=== PATIENT | male | born 1975 ===

== ENCOUNTER 2017-01-12 10:01 | Emergency (ER) | payer BC ==
--- NOTE | 2017-01-12 10:19 | Emergency Department Record ---
History of Present Illness - General Chief Complaint: Ankle/Foot Injury Stated Complaint: RT FOOT INJURY Time Seen by Provider: 01/12/17 10:06 Source: Patient, Family Mode of Arrival: Ambulatory Limitations: No limitations - History of Present Illness Initial Comments: 41 yo male presents with mid lateral foot pain. [place] He did not break the skin. No warmth or redness. He has some bruising. No other medical concerns at this time besides the foot. MD Complaint: Foot injury -: Hour(s) (1) Injury: Foot: Right Type of Injury: Unknown Place: Other (uneven rocks) Severity: Moderate Improves With: Immobilization Worsens With: Movement, Palpation, Weight bearing Context: Walking Associated Symptoms: Able to partially bear weight - Related Data Home Medications Medication Instructions Recorded Confirmed Last Taken Omeprazole [Prilosec] 20 mg PO QD cap 12/22/16 01/12/17 Unknown Allergies Allergy/AdvReac Type Severity Reaction Status Date / Time tramadol AdvReac VOMITING Unverified 01/12/17 10:08 Review of Systems Constitutional: Denies: Chills, Fever, Weakness Eyes: Denies: Eye discharge ENT: Denies: Congestion, Throat pain Respiratory: Denies: Cough Cardiovascular: Denies: Chest pain, Palpitations, Syncope Endocrine: Denies: Fatigue Gastrointestinal: Denies: Abdominal pain, Diarrhea, Nausea, Vomiting Genitourinary: Denies: Hematuria, Urgency Musculoskeletal: Reports: As per HPI, Arthralgia, Joint swelling (foot) Skin: Reports: As per HPI, Bruising, Change in color. Denies: Lesions, Rash Neurological: Denies: Headache, Numbness, Tingling, Weakness Psychiatric: Denies: Anxiety Hematological/Lymphatic: Denies: Blood Clots, Easy bleeding, Easy bruising, Swollen glands Physical Exam - General General Appearance: Alert, Oriented x3, Cooperative, No acute distress Limitations: No limitations - Head Head exam: Normal inspection - Eye Eye exam: Normal appearance, PERRL - ENT ENT exam: Normal exam Ear exam: Normal external inspection Nasal Exam: Normal inspection Mouth exam: Normal external inspection - Neck Neck exam: Normal inspection - Respiratory Respiratory exam: Normal lung sounds bilaterally. negative: Respiratory distress - Cardiovascular Cardiovascular Exam: Regular rate, Normal rhythm, Normal heart sounds Peripheral Pulses: 2+: Dorsalis Pedis (R) - Rectal Rectal exam: Deferred - exam: Deferred - Extremities Extremities exam: Full ROM, Normal capillary refill, Tenderness. negative: Normal inspection, Calf tenderness, Pedal edema Image of Feet: 1 - tender, minimal swelling, slight bruising, no achilles tenderness, achilles intact, no ankle tenderness - Back Back exam: Reports: Full ROM - Neurological Neurological exam: Alert, Normal gait, Oriented X3, Reflexes normal - Psychiatric Psychiatric exam: Normal affect, Normal mood - Skin Skin exam: Dry, Intact, Normal color, Warm. negative: Cyanosis, Diaphoretic, Erythema Course - Reevaluation(s) Reevaluation #1: The XR was reviewed. He has a non displaced fracture of the proximal 5th MT (Pseudo Doss) Referral made to the specialty ortho clinic 01/12/17 10:38 Disposition Disposition: Discharge Clinical Impression: Strain of foot, right Qualifiers: Encounter type: initial encounter Qualified Code(s): S96.911A - Strain of unspecified muscle and tendon at ankle and foot level, right foot, initial encounter Fracture of 5th metatarsal Qualifiers: Encounter type: initial encounter Fracture type: closed Fracture alignment: nondisplaced Laterality: right Qualified Code(s): S92.354A - Nondisplaced fracture of fifth metatarsal bone, right foot, initial encounter for closed fracture Disposition: Home, Self-Care Condition: (1) Good Instructions: Foot Fracture in Adults (ED) Additional Instructions: Ice, elevate, avoid weight bearing until pain free Follow up in one week to recheck with your doctor or seen in the specialty ortho clinic or orthopedist of your doctor's choice Use the crutches and boot as directed for support and comfort Referrals: KAILEY LEE [DOCTOR OF OSTEOPATH] - [facility] Specialty Clinics [Provider Group] Forms: Patient Portal Access Time of Disposition: 10:40
--- NOTE | 2017-01-13 05:11 | RADIOLOGY REPORT ---
DATE: 01/12/2107. EXAM: RIGHT FOOT. HISTORY: INJURY. TECHNIQUE: Three views of the right foot were performed. FINDINGS: There is a nondisplaced fracture deformity of the base of the fifth metatarsal bone. There is soft tissue swelling. IMPRESSION: NONDISPLACED FRACTURE DEFORMITY OF THE BASE OF THE FIFTH METATARSAL. JOB NUMBER: [id number] MTDD
== END 2017-01-12 10:57 | disposition home or self-care (01) ==
LOC: ER 10:01
DX: S92.354A Nondisplaced fracture of fifth metatarsal bone, right foot, initial encounter for closed fracture (principal); S96.911A Strain of unspecified muscle and tendon at ankle and foot level, right foot, initial encounter; W18.40XA Slipping, tripping and stumbling without falling, unspecified, initial encounter; Y93.16 Activity, rowing, canoeing, kayaking, rafting and tubing
CPT/HCPCS: 99283

== ENCOUNTER 2019-06-18 13:59 | Emergency (ER) | payer BC ==
--- NOTE | 2019-06-18 14:41 | Emergency Department Record ---
History of Present Illness - General Chief Complaint: Fall Injury Stated Complaint: FELL IN THE SHOWER/RIB PAIN Time Seen by Provider: 06/18/19 14:17 Source: Patient, Family (son) Mode of Arrival: Ambulatory Limitations: No limitations - History of Present Illness Initial Comments: Pt with family from home after falling in shower last PM. Pt states he hit his right side ribs on the side of the tub. Intense pain which is worse with respirations. No pain in abdomen, no blood in the urine. No head or neck injury. Onset/Timin -: Days(s) Fall From: Other When Fall Occurred: 24 hours [employer] Fall Witnessed: No Place Fall Occurred: Home Loss of Consciousness: None Prolonged Down Time?: No Symptoms Prior to Fall: None Location: Chest Severity scale (1-10): 8 Quality: Sharp Context: Tripped/slipped Associated Symptoms: Shortness of breath - Related Data Previous Rx's Medication Instructions Recorded Hydrocodone/Acetaminophen [Trinchera 1 each PO Q4HR PRN 3 Days #12 06/18/19 5-325 Tablet] tablet Ibuprofen [Motrin] 800 mg PO Q8H PRN 7 Days #40 tab 06/18/19 Allergies Allergy/AdvReac Type Severity Reaction Status Date / Time tramadol AdvReac VOMITING Unverified 01/17/19 17:52 Travel Screening - Travel/Exposure Within Last 30 Days Have you traveled within the last 30 days?: No Review of Systems Constitutional: Denies: Chills, Fever Eyes: Denies: Eye discharge ENT: Denies: Congestion Respiratory: Reports: Dyspnea. Denies: Cough, Stridor Cardiovascular: Denies: Arrhythmia, Syncope Endocrine: Denies: Fatigue Gastrointestinal: Denies: Abdominal pain, Diarrhea, Nausea, Vomiting Genitourinary: Denies: Hematuria Musculoskeletal: Reports: As per HPI, Back pain Skin: Reports: Bruising Neurological: Denies: Headache Psychiatric: Denies: Anxiety Hematological/Lymphatic: Denies: Anemia Past Medical History - SOCIAL HISTORY Smoking Status: Current every day smoker - RESPIRATORY Hx Respiratory Disorders: No - CARDIOVASCULAR Hx Cardio Disorders: No - NEURO Hx Neuro Disorders: No - GI Hx GI Disorders: Yes Hx Reflux: Yes - Hx Genitourinary Disorders: No - ENDOCRINE Hx Endocrine Disorders: No - MUSCULOSKELETAL Hx Musculoskeletal Disorders: No - PSYCH Hx Psych Problems: No - HEMATOLOGY/ONCOLOGY Hx Hematology/Oncology Disorders: No Family Medical History Any Significant Family History?: No Physical Exam - General General Appearance: Alert, Oriented x3, Cooperative, Moderate distress - Head Head exam: Atraumatic, Normocephalic Head exam detail: negative: Hayden's sign - Eye Eye exam: Normal appearance, PERRL, EOMI - ENT ENT exam: Mucous membranes moist Ear exam: Normal external inspection Nasal Exam: Normal inspection Mouth exam: Normal external inspection - Neck Neck exam: Normal inspection, Full ROM. negative: Tenderness - Respiratory Respiratory exam: Normal lung sounds bilaterally, Chest wall tenderness, Other (right lateral ribs tender #5-8. No crepitence ). negative: Rhonchi, Wheezes - Cardiovascular Cardiovascular Exam: Regular rate, Normal rhythm. negative: Tachycardia - GI/Abdominal GI/Abdominal exam: Soft, Normal bowel sounds. negative: Guarding, Tenderness - Extremities Extremities exam: Normal inspection - Back Back exam: Reports: CVA tenderness (R), Paraspinal tenderness - Neurological Neurological exam: Alert, Normal gait, Oriented X3 - Psychiatric Psychiatric exam: Normal affect, Normal mood - Skin Skin exam: Normal color Course Vital Signs 06/18/19 14:07 Temperature 98.3 F Pulse Rate [ 103 H Pulse Ox Probe] Respiratory 20 Rate Blood Pressure 129/79 [Left Arm] Pulse Ox 95 - Reevaluation(s) Reevaluation #1: 06/18/19 14:46 Xrays without evidence of clear fracture of rib. No pneumothorax. Toradol IM for pain. Discussed treatment at home with meds and deep inspirations. Disposition Disposition: Discharge Clinical Impression: Fall Qualifiers: Encounter type: initial encounter Qualified Code(s): W19.XXXA - Unspecified fall, initial encounter Contusion of rib on right side Qualifiers: Encounter type: initial encounter Qualified Code(s): S20.211A - Contusion of right front wall of thorax, initial encounter Condition: (2) Stable Instructions: Rib Contusion (ED) Additional Instructions: Deep inspiration every 10-20 minutes splinting with a pillow. Take meds for pain. Family doctor recheck in 3 days Return to the ED as needed. Prescriptions: Hydrocodone/Acetaminophen [Trinchera 5-325 Tablet] 1 each PO Q4HR PRN 3 Days #12 tablet PRN Reason: Pain - Mod To Severe (5-10) Ibuprofen [Motrin] 800 mg PO Q8H PRN 7 Days #40 tab PRN Reason: Pain - Mild To Moderate (1-7) Forms: Patient Portal Access Time of Disposition: 14:56 Quality - Quality Measures Quality Measures: N/A - Blood Pressure Screening Does Patient Have Any of the Following: No Blood Pressure Classification: Pre-Hypertensive BP Reading Systolic Measurement: 129 Diastolic Measurement: 79 Screening for High Blood Pressure: < Pre-Hypertensive BP, F/U Documented > [[id number]] Pre-Hypertensive Follow-up Interventions: Follow-up with rescreen every year.
[2019-06-18] MEDS ORDERED: KETOROLAC 60 MG/2 ML VIAL IM STA (14:44)
--- NOTE | 2019-06-18 14:57 | RADIOLOGY REPORT ---
EXAMINATION: Right Ribs with Frontal View Chest, Minimum Three Views EXAM DATE: 06/18/2019 2:44 PM TECHNIQUE: A PA view of the chest and 5 views of the right ribs. INDICATION: rib pain s/p fall in tub COMPARISON: 01/17/2019 ENCOUNTER: Initial FINDINGS: Chest: The heart is normal in size. There is no pulmonary vascular congestion. No effusion, pneumot horax or acute pulmonary process is seen.. Right ribs: There is a subacute/healing fracture of the left posterolateral fifth rib. No acute or h ealing right rib fracture is seen.. IMPRESSION: 1. Negative for acute cardiopulmonary process. 2. Subacute/healing fracture of the left posterolateral fifth rib. 3. Negative right ribs. Dictated by: Aden Castelan MD on 06/18/2019 2:50 PM. .
[2019-06-18 15:09] LABS: URINE APPEARANCE CLEAR; URINE BILIRUBIN SMALL (NEGATIVE); URINE BLOOD SMALL (NEGATIVE); URINE COLOR YELLOW; URINE GLUCOSE (UA) NEGATIVE (NEGATIVE); URINE KETONE NEGATIVE (NEGATIVE); URINE LEUKOCYTE ESTERASE NEGATIVE (NEGATIVE); URINE NITRITE NEGATIVE (NEGATIVE); URINE PROTEIN TRACE (NEGATIVE); URINE UROBILINOGEN 0.2 E.U./dL (0.20 - 1.00)
[2019-06-18 15:16] LABS: URINE EPITHELIAL CELLS NONE SEEN (FEW); URINE HYALINE CAST 0 - 5 /lpf; URINE RBC 0 - 2 (NONE SEEN); URINE WBC NONE SEEN (0-2/hpf)
== END 2019-06-18 16:18 | disposition home or self-care (01) ==
LOC: ER 13:59
DX: S20.211A Contusion of right front wall of thorax, initial encounter (principal); R06.02 Shortness of breath; F17.210 Nicotine dependence, cigarettes, uncomplicated; W01.10XA Fall on same level from slipping, tripping and stumbling with subsequent striking against unspecified object, initial encounter; Y93.E1 Activity, personal bathing and showering; Y92.002 Bathroom of unspecified non-institutional (private) residence as the place of occurrence of the external cause
CPT/HCPCS: 81001; 96372; 99284; J1885